=== PATIENT | male | born 1960 | race Caucasian/White ===

== ENCOUNTER 2019-06-07 08:38 | Outpatient (CLI) | payer BC, SELFPAY ==
--- NOTE | ~2019-06-07 | US_ITS ---
US scrotum doppler INDICATION: Abnormal testosterone levels TECHNIQUE: Testicular sonogram utilizing grayscale and color Doppler FINDINGS: The testes are normal in size and appearance. No focal lesions are seen. The right testes measures 4 x 3.6 x 2.6 cm centimeters, and the left testis measures 4.4 x 2.6 x 2.5 cm cm. There is n ormal vascular flow to both testes. The right and left epididymides appear normal. There is no varicocele or hydrocele. IMPRESSION: 1. NORMAL TESTICULAR ULTRASOUND. Reviewed, dictated and finalized at location A.
[2019-06-07 09:49] LABS: Alanine Aminotransferase 10 U/L (4-50); Albumin Level 4.4 g/dL (3.5-5.1); Alkaline Phosphatase 63 U/L (38-126); Aspartate Amino Transferase 20 U/L (17-59); Bilirubin,Total 0.5 mg/dL (0.2-1.3); Blood Urea Nitrogen 11 mg/dL (9-20); Calcium 9.4 mg/dL (8.4-10.2); Carbon Dioxide 24 mmol/L (22-30); Chloride 104 mmol/L (98-107); Estimated Glomerular Filt Rate > 60; Glucose 93 mg/dL (75-110); Sodium 133 mmol/L (137-145)
[2019-06-07 10:19] LABS: Cortisol Random 1.76 ug/dL
[2019-06-07 10:21] LABS: Free T4 Free Thyroxine 0.48 ng/mL (0.78-2.19)
[2019-06-10 20:03] LABS: HCG Tumor Marker <3 mIU/mL (<5); LH 41.4 mIU/mL (1.6-15.2); Prolactin 57.6 ng/mL (***)
[2019-06-11 03:39] LABS: Adrenocorticotropic Hormone 10 pg/mL (6-50)
[2019-06-11 10:05] LABS: DHEA-Sulfate 116 mcg/dL (38-313)
[2019-06-11 16:01] LABS: Testosterone Free 217.2 pg/mL (35.0-155.0); Testosterone Total 1752 ng/dL (250-1100)
[2019-06-12 17:36] LABS: Alpha Fetoprotein Tumor Marker 2.6 ng/mL (<6.1)
[2019-06-13 22:32] LABS: Z Score Male -1.3 SD (-2.0 - +2.0)
[2019-06-14 17:28] LABS: Estradiol, Ultrasensitive 164 pg/mL (< OR = 29)
== END 2019-06-07 08:39 | disposition home or self-care (01) ==
PROVIDERS: PCP Family Medicine; Visit Provider Internal Medicine Endocrinology, Diabetes & Metabolism
DX: D35.2 Benign neoplasm of pituitary gland (principal); E29.0 Testicular hyperfunction
CPT/HCPCS: 36415; 76870; 80053; 82024; 82105; 82397; 82533; 82627; 82642; 82670; 83001; 83002; 84146; 84305; 84402; 84403; 84439; 84443; 84702; 93976

== ENCOUNTER 2019-06-19 11:14 | Outpatient (CLI) | payer BC, SELFPAY ==
[2019-06-19 12:17] LABS: Cortisol Baseline 2.27 ug/dL
[2019-06-19 13:21] LABS: Cortisol 30 Minute 7.92 ug/dL
== END 2019-06-19 11:15 | disposition home or self-care (01) ==
PROVIDERS: PCP Family Medicine; Visit Provider Internal Medicine Endocrinology, Diabetes & Metabolism
DX: R94.7 Abnormal results of other endocrine function studies (principal)
CPT/HCPCS: 36415; 82533; 96372; J0834